=== PATIENT | male | born 1980 | race Caucasian/White ===

== ENCOUNTER 2016-07-10 02:21 | Inpatient (IN) | payer MEDICAID ==
--- NOTE | ~2016-07-10 | DS ---
Unit #: [id number] #: [id number] Patient: JONATHAN MACEDO [id number] [facility] [address] [place] [address] [id number] MR#: [id number] NAME: JONATHAN MACEDO ROOM: [facility] Age: 35 Sex: M Admission Date: 07/10/2016 : 1980 Discharge Date: 07/11/2016 Attending Physician: Derick Land M.D. Primary Care Physician: Primary Care Physician No DISCHARGE SUMMARY REASON FOR ADMISSION The patient is a 35-year-old homeless white male with a history of polysubstance dependence. HOSPITAL COURSE The patient was initially admitted to the [address] [place] [address] unit, but was transferred to the [facility] unit. He was placed on routine detoxification protocol for alcohol and exhibited little in the way of signs or symptoms of withdrawal. On the afternoon of 07/11/2016, this physician was contacted by the nurse bilingual account manager of the [facility] unit and was informed that the patient had been profane and threatening toward staff, demanding discharge. When this physician came on the unit, the patient demanded to remain in the hospital stating that he was "fucking detoxing" and claiming that this physician did not wish to provide him with any care. At that point, he was not exhibiting any signs or symptoms of withdrawal and given his behavior, the decision was made to discharge the patient. FINAL DIAGNOSES Alcohol use disorder, antisocial personality disorder. DISPOSITION ON DISCHARGE The patient is discharged on no psychotropic or other medications and given the circumstances of discharge, no psychiatric followup is arranged for the patient. PROGNOSIS The patient's prognosis is considered poor. Dictated by... Derick Land M.D. TAWNY/lei TD: 07/11/2016 22:44 JOB #: [id number] Unit #: [id number] #: [id number] Patient: JONATHAN MACEDO DISCHARGE SUMMARY X Derick Land MD X DISCHARGE SUMMARY
--- NOTE | ~2016-07-10 | HP ---
Unit #: [id number] #: [id number] Patient: JONATHAN MACEDO [id number] [place] [address] [id number] MR#: [id number] NAME: JONATHAN MACEOD ROOM: 75 Age: 35 Sex: M Admission Date: 07/10/2016 : 1980 Attending Physician: Derick Land M.D. Admitting Physician: Derick Land M.D. Primary Care Physician: Primary Care Physician No HISTORY AND PHYSICAL HISTORY OF PRESENT ILLNESS Jonathan is a 35 year old admitted to [facility] because of his drug use. He shoots heroin and methamphetamine. PAST MEDICAL HISTORY Long history of poly illicit substance abuse to include IV heroin and methamphetamine PAST SURGICAL HISTORY Right leg. ALLERGIES No known drug allergies. SOCIAL HISTORY Smokes less than one pack per day. Denies alcohol. Admits to a long history of poly illicit substance abuse to include IV drugs. FAMILY HISTORY Medically noncontributory. REVIEW OF SYSTEMS CONSTITUTIONAL: No fever or chills. HEENT: Denies any sore throat, ear pain or runny nose. CARDIOVASCULAR: Denies chest pain, irregular heart rhythm or palpitations. CHEST: Denies shortness of breath or cough. No hemoptysis. GASTROINTESTINAL: Denies nausea, vomiting, diarrhea or chronic constipation. ENDOCRINE: Denies history of increased thirst or urination. No recent significant weight loss or gain. GENITOURINARY: Denies dysuria, frequency, or hematuria. SKIN: Denies any rashes. HEMATOLOGIC: Denies history of increased bleeding or bruising. MUSCULOSKELETAL: Denies any hot, swollen joints. No generalized muscle pain. NEUROLOGIC: Denies problems with vision or speech. No frequent, severe headaches. No numbness, tingling or weakness in any extremities. Denies loss of bladder or bowel control. CURRENT MEDICATIONS Detox protocol Unit #: [id number] #: [id number] Patient: JONATHAN MACEDO PHYSICAL EXAMINATION GENERAL: Alert, well-nourished, in no apparent distress. VITAL SIGNS: Blood pressure 114/60, heart rate 62, respirations 16, temperature 98.6. WEIGHT: 148 pounds. HEIGHT: 5'5". SKIN: Warm and dry without rash or lesion. HEENT: Normocephalic. TMs not viewed. Oral and nasal passages clear. Conjunctivae clear. Pupils equal, round and reactive to light and accommodation. Extraocular movements intact. NECK: Supple without lymphadenopathy or thyromegaly. HEART: Regular rate and rhythm without murmur. LUNGS: Clear. ABDOMEN: Soft, nontender. : Not done. EXTREMITIES: No evidence of cyanosis, clubbing or edema. Moves all extremities without focal deficit. NEUROLOGICAL: Grossly within normal limits. Cranial Nerves: II: Visual álvarez are intact. III, IV AND : Extraocular movements are intact. Pupils are equal, round and reactive to light. V: Facial sensation is grossly normal. VII: Facial movements and expression are normal. VIII: Auditory acuity grossly intact. IX, X: Uvula is midline. Phonation is normal. XI: Patient shrugs shoulders and turns head normally. XII: Tongue protrudes in the midline. Sensory and Motor Function: Sensory and motor sensation is grossly normal. Motor: moves all extremities well. Coordination: Gait is normal. Deep Tendon Reflexes: Intact. IMPRESSION Psychiatric admission RECOMMENDATIONS PSYCHIATRIC: Per psychiatrist. MEDICAL: 1. I see no contraindications to participating in facility's activities. 2. Detox per protocol. MEDICAL PROGNOSIS Good. MEDICAL CONDITION Stable. Dictated by... Tamera Frankel P.A.-C. for Shobha Davis/walter TD: 07/11/2016 02:05 JOB #: [id number] Unit #: [id number] #: [id number] Patient: JONATHAN MACEDO HISTORY AND PHYSICAL X Tamera Frankel X HISTORY AND PHYSICAL
--- NOTE | ~2016-07-10 | PA ---
Unit #: [id number] #: [id number] Patient: JONATHAN MACEDO [id number] [facility] [address] [place] [address] [id number] MR#: [id number] NAME: JONATHAN MACEDO ROOM: P130 Age: 35 Sex: M Admission Date: 07/10/2016 : 1980 Date of Assessment: 07/10/2016 Attending Physician: Derick Land M.D. Admitting Physician: Derick Land M.D. Primary Care Physician: Primary Care Physician No PSYCHIATRIC ASSESSMENT IDENTIFYING INFORMATION The patient is a 35-year-old white male admitted after he had presented to this facility voicing suicidal ideation following drug binge. CHIEF COMPLAINT None given. INFORMANT Chart. Patient cannot be aroused for interview. HISTORY OF PRESENT ILLNESS The patient is a 35-year-old white male admitted after he had presented to this facility voicing positive suicidal ideation related to her recent substance abuse binge. The patient had considered suicide. The patient h as been using ice meth, cocaine, heroin, and spice reportedly. The patient is today sleeping soundly. He was last admitted under the care of Dr. Cardoza in 2014 under similar circumstances. At that time, alcohol was his drug of choice. PAST PSYCHIATRIC HISTORY As above. PAST MEDICAL HISTORY The patient is hepatitis C positive. MEDICATIONS At the time of admission, the patient was on no prescribed medications. ALLERGIES Penicillin. FAMILY HISTORY Noncontributory. SOCIAL HISTORY The patient is currently homeless. SUBSTANCE ABUSE HISTORY As described previously, and he is a smoker. MENTAL STATUS EXAMINATION Examination at this time reveals the patient to be a somewhat disheveled and amateurishly tattooed white male appearing stated age. He is in no Unit #: [id number] #: [id number] Patient: JONATHAN MACEDO apparent physical distress at the time of examination. He is sleeping soundly and attempts to arouse are not successful. ASSETS AND LIABILITIES The patient's assets are to be assessed. Liabilities: Lack of resources. DIAGNOSTIC IMPRESSION 1. Opioid use disorder. 2. Hallucinogen use disorder. 3. Methamphetamine use disorder. 4. Cocaine use disorder. 5. Dysthymic disorder. 6. Antisocial personality disorder. 7. Hepatitis C. TREATMENT PLAN The patient remains hospitalized for safety and stabilization and will be watched for any signs of opioid withdrawal and suicide precautions remain in place. The patient will participate in appropriate order of milieu activities. ESTIMATED LENGTH OF STAY 3 to 5 days. We will attempt to transfer the patient to the [facility] or [address] [place] [address] Unit to facilitate participation in chemical dependence programming. Dictated by... Derick Land M.D. Bushra TD: 07/10/2016 13:51 JOB #: [id number] PSYCHIATRIC ASSESSMENT X Derick Land MD X PSYCHIATRIC ASSESSMENT
[~2016-07-10 02:21] MED LIST: ADVIL; FLEXERIL10 MG PO; LIDOCAINE VISCOU1 ML EXT; NAPROSYN125 MG/5 M PO; VOLTAREN75 MG PO; ZOVIRAX400 MG PO
[2016-07-10 09:44] LABS: BASOPHIL# 0.1 X10e3 (0-0.3); BASOPHIL% 0.7 % (0-2.5); EOSINOPHIL# 0.3 X10e3 (0-0.7); EOSINOPHIL% 4.3 % (0.0-7.0); HEMATOCRIT 44.1 % (38.0-50.0); HEMOGLOBIN 14.8 gm/dL (13.0-16.0); LYMPHOCYTE% 37.7 % (17.0-45.0); MEAN CELL VOLUME 91.9 FL (83-96); MEAN CORPUSCULAR HGB CONC 33.7 g/dL (30-36); MEAN PLATELET VOLUME 9.1 FL (6.5-11.5); MONOCYTE# 0.9 X10e3 (0-1.0); NEUTROPHIL# 3.7 X10e3 (1.5-7.1); NEUTROPHIL% 46.3 % (40-75); PLATELET COUNT 223 X10e3 (140-420); RED BLOOD COUNT 4.79 X10e (3.90-5.60); RED CELL DISTRIBUTION WIDTH 13.4 % (11.0-15.5)
[2016-07-10 09:55] LABS: DIFF IND NO
[2016-07-10 09:59] LABS: ALKALINE PHOSPHATASE 67 U/L (32-92); ALT (SGPT) 58 U/L (10-40); AST (SGOT) 41 U/L (10-42); BILIRUBIN,TOTAL 0.5 mg/dL (0.2-2.0); BLOOD UREA NITROGEN 10 mg/dL (9-23); BUN/CREATININE RATIO 11.11; CALCIUM SERUM 9.7 mg/dL (8.4-10.2); CARBON DIOXIDE 29 mmol/L (22-31); CHLORIDE 107 mmol/L (100-111); CREATININE SERUM 0.9 mg/dL (0.6-1.4); GLOM FILT RATE Estimated ABOVE60 mL/min (>60); GLUCOSE FASTING 90 mg/dL (70-110); POTASSIUM 4.8 mmol/L (3.5-5.1); PROTEIN TOTAL SERUM 6.5 g/dL (6.0-8.3); SODIUM 143 mmol/L (135-145)
[2016-07-11 10:04] LABS: URINE APPEARANCE CLEAR; URINE BILIRUBIN NEG (NEG); URINE BLOOD NEG (NEG); URINE COLOR YELLOW; URINE GLUCOSE NEG (NEG); URINE KETONE NEG (NEG); URINE LEUKOCYTE ESTERASE NEG (NEG); URINE NITRATE NEG (NEG); URINE PROTEIN NEG (NEG); URINE SPECIFIC GRAVITY 1.012 (1.003-1.035)
[2016-07-11 10:43] LABS: AMPHETAMINE NEG (NEG); BARBITURATES NEG (NEG); BENZODIAZEPINES NEG (NEG); COCAINE NEG (NEG); MARIJUANA NEG (NEG); OPIATES NEG (NEG); TRICYCLIC ANTIDEPRESSANTS NEG (NEG); U METHADONE NEG (NEG)
[2016-07-15 09:28] LABS: HA AB IGM (HEPPAN) Nonreactive (Nonreactive); HB CORE AB IGM (HEPPAN) Nonreactive (Nonreactive); HB S AG (HEPPAN) Nonreactive (Nonreactive); HEP C AB (HEPPAN) Reactive (Nonreactive)
== END 2016-07-11 13:10 | disposition home or self-care (01) | DRG 897 ==
LOC: P1S 02:21 → P1E 16:53
PROVIDERS: Specialist
PROC: HZ2ZZZZ Detoxification Services for Substance Abuse Treatment (ICD-10-PCS; principal; 2016-07-10)
DX: F11.20 Opioid dependence, uncomplicated (principal); R45.851 Suicidal ideations; F16.20 Hallucinogen dependence, uncomplicated; F15.20 Other stimulant dependence, uncomplicated; F14.20 Cocaine dependence, uncomplicated; F34.1 Dysthymic disorder; F60.2 Antisocial personality disorder; F17.200 Nicotine dependence, unspecified, uncomplicated
CPT/HCPCS: 80053; 80074; 80307; 81003; 85025; 87522